=== PATIENT | female | born 1930 | race Caucasian/White ===

== ENCOUNTER → 2016-09-06 | Outpatient (CLI) | payer OTHER ==
[~2016-09-06] MED LIST: CARDIZEM CD240 MG PO; GABAPENTIN 100100 MG PO; GLUCOPHAGE XR500 MG PO; IBUPROFEN 200200 M1 PO; MIRALAX17 G1 PO
== END ==
LOC: ULTRA 09:17
DX: I73.9 Peripheral vascular disease, unspecified (principal); M79.604 Pain in right leg

== ENCOUNTER 2016-12-13 05:18 | Inpatient (IN) | payer OTHER ==
[2016-12-02 10:43] LABS: HEMATOCRIT 36.3 % (37.0-47.0); HEMOGLOBIN 11.4 gm/dL (12.0-15.0); MCH 25.6 pg (26.0-34.0); MCHC 31.3 g/dL (28.0-37.0); MCV 81.7 fL (80.0-100.0); RBC 4.45 mil/uL (4.20-5.00); RDW 18.2 % (10.5-14.5); WBC 7.9 thou/uL (4.0-11.0)
[2016-12-02 10:53] LABS: ALBUMIN 3.6 g/dL (3.4-5.0); CALCIUM 9.3 mg/dL (8.5-10.1); CREATININE 0.9 mg/dL (0.6-1.0); POTASSIUM 4.1 mmol/L (3.5-5.1); PROTIME 10.3 Seconds (9.3-11.4)
[2016-12-02 11:13] LABS: URINE BILIRUBIN NEGATIVE (Negative); URINE BLOOD NEGATIVE (Negative); URINE COLOR YELLOW; URINE GLUCOSE-RANDOM* NEGATIVE (Negative); URINE KETONES NEGATIVE (Negative); URINE LEUKOCYTES-REFLEX 3+ (Negative); URINE PROTEIN (DIPSTICK) NEGATIVE (Negative); URINE UROBILINOGEN 0.2 E.U./dl (0.2-1.0)
[2016-12-02 11:32] LABS: CASTS None Seen /LPF (None Seen); SQUAMOUS >10 Many /LPF (0-3)
[2016-12-02 11:33] LABS: CRYSTALS None Seen /LPF (None Seen); URINE RBC 0-2 Rare /HPF (0-2); URINE WBC-REFLEX >25 Many /HPF (0-5)
[2016-12-03 17:25] LABS: GLYCOHEMOGLOBIN (HGB A1C) 5.6 % (4.8-5.6)
[2016-12-05 14:21] LABS: URINE BILIRUBIN NEGATIVE (Negative); URINE BLOOD NEGATIVE (Negative); URINE COLOR YELLOW; URINE GLUCOSE-RANDOM* NEGATIVE (Negative); URINE KETONES NEGATIVE (Negative); URINE LEUKOCYTES-REFLEX NEGATIVE (Negative); URINE PROTEIN (DIPSTICK) NEGATIVE (Negative); URINE SPECIFIC GRAVITY 1.015 (1.003-1.035); URINE UROBILINOGEN 0.2 E.U./dl (0.2-1.0)
[~2016-12-13] VITALS: Ht 149.9 cm; Wt 77.1 kg
[2016-12-13] VITALS (8 sets, daily range): BP systolic 110–159; BP diastolic 42–73
--- NOTE | ~2016-12-13 | O ---
[facility] [place] [address] OPERATIVE REPORT Name: ISABELLA BROWNING Room #: 537-P [facility] IN M.R.#: [id number] Admission: 12/13/16 Attend Phys: Chas Stephens MD Discharge: 12/17/16 Date of : 34 Report #: [id number] THIS REPORT FOR: //name// CC: Alexis Antonio MD [facility] Alonso Stephens DATE OF OPERATION: 12/13/2016. PREOPERATIVE DIAGNOSES: Left knee degenerative joint disease, severe. Obesity, BMI 35.94 POSTOPERATIVE DIAGNOSES: Left knee degenerative joint disease, severe. Obesity, BMI 35.94 PROCEDURE: Left total knee arthroplasty. SURGEON: Dr. Chas Stephens. SENIOR APPLICATIONS ANALYST: MARJORIE Arredondo. ANESTHETIC: General. INDICATIONS: See hospital history and physical. IMPLANTS UTILIZED: We used a DePuy PFC knee system. We used a press-fit femoral component size 3, a cruciate retaining. We used a size 3 tibial tray with a 10 mm insert and a 38 mm oval dome patella. DESCRIPTION OF PROCEDURE: After adequate general anesthesia had been obtained, the patient's left lower extremity was prepped and draped in the usual meticulous sterile fashion. Limb was exsanguinated with gravity, tourniquet inflated to 350 torr. An anterior midline incision was made, subQ divided sharply. Hemostasis obtained with electrocautery. Medial parapatellar incision was made. Infrapatellar fat pad excised. Medial release performed. The drill was used to drill the distal femur. This hole was enlarged, irrigated, suctioned, and the intramedullary guide placed the full length of the femur. The distal femoral cutting guide was pinned the appropriate height and the distal femoral cut was made. Measuring device determined the size 3 was appropriate size for this patient. We marked the distal femur, impacted the cutting guide into position and the anterior, posterior and chamfer cuts were made. Rongeur was used to remove additional osteophytes. At this time, the ACL was transected, tibia translated anteriorly and menisci were excised. Drill was used to drill central portion of the tibia. This hole was enlarged, irrigated, suctioned, and the intramedullary guide placed the full length of tibia. Proximal tibial cutting guide placed at appropriate height. Proximal tibia cut [address] [address] OPERATIVE REPORT Name: ISABELLA BROWNING Room #: 537-P [facility] IN M.R.#: [id number] Admission: 12/13/16 Attend Phys: Chas Stephens MD Discharge: 12/17/16 Date of : 34 Report #: [id number] was made, 3 tray gave us the best coverage on the tibia. We then meticulous removed osteophytes posteriorly. We then placed trial components in position with a 10 spacer, she had the best flexion and extension gap. Patella tracked normally. At this time, patella was measured, cutting guide clamped into place, patellar cut was made. 38 template gave us the best coverage. Pedicles were drilled, trial component put in position, it tracked normally. At this time, the trial components were removed. Tibial keel cuts were made. The knee was irrigated with both pulse lavage and antibiotic irrigation. Bone plugs were placed proximal tibia and distal femur. Next vacuum mixed the cement and when it reached the appropriate consistency, the knee was thoroughly dried, the tibial tray was cemented in place. Excess cement was removed. The polyethylene was impacted in place and the femur impacted in place and the knee was taken out to 30 degrees of flexion, uniform compression placed across components. Patellar button was then cemented into place and again excess cement was removed. Irrigation was placed in the wound and allowed to rest in the wound until the cement fully cured. When it had done so, the knee was irrigated, dried thoroughly, and inspected. Drains were placed superolaterally both deep and superficial. The retinacular layer closed with combination of interrupted [id number] #1 Vicryl as well as running #2 Tevdek. SubQ closed with 2-0 Monocryl in multiple layers due to the patient's size, which took extra time. Skin closed with tomer. Sterile compressive dressing applied. Tourniquet then deflated. <ELECTRONICALLY SIGNED> By: Chas Stephens MD 12/20/16 0723 [id number] Chas Stephens MD /nt
[~2016-12-13 05:18] MED LIST changes: +ALEVE220 MG PO; +ASPIR 8181 MG PO; +DIAPLEX PO; +TOPROL XL25 MG PO; +VITAL REDS PO; +VITAMIN B-12100 MC1 PO; +VITAMIN D1000 UNIT PO
[2016-12-14] VITALS (7 sets, daily range): BP systolic 101–148; BP diastolic 43–78
[2016-12-14 06:29] LABS: HEMATOCRIT 30.4 % (37.0-47.0); HEMOGLOBIN 9.8 gm/dL (12.0-15.0); MCH 26.3 pg (26.0-34.0); MCHC 32.2 g/dL (28.0-37.0); MCV 81.5 fL (80.0-100.0); RBC 3.73 mil/uL (4.20-5.00); RDW 17.8 % (10.5-14.5); WBC 11.9 thou/uL (4.0-11.0)
[2016-12-14 10:25] LABS: CALCIUM 8.6 mg/dL (8.5-10.1); CREATININE 0.9 mg/dL (0.6-1.0); POTASSIUM 4.1 mmol/L (3.5-5.1)
[2016-12-15 04:10] VITALS: BP 146/46
[2016-12-15 06:33] LABS: HEMATOCRIT 28.8 % (37.0-47.0); HEMOGLOBIN 9.4 gm/dL (12.0-15.0); MCH 26.2 pg (26.0-34.0); MCHC 32.6 g/dL (28.0-37.0); MCV 80.5 fL (80.0-100.0); RBC 3.58 mil/uL (4.20-5.00); RDW 17.9 % (10.5-14.5); WBC 13.5 thou/uL (4.0-11.0)
[2016-12-15] MEDS ORDERED: XARELTO10 MG PO (07:23)
[2016-12-15] MEDS ORDERED: HYDROCODONE-APA1 TA1 PO (07:23)
[2016-12-15 08:42] VITALS: BP 140/47
[2016-12-15 15:50] VITALS: BP 127/42
[2016-12-15 22:08] VITALS: BP 138/51
[2016-12-16 04:49] VITALS: BP 114/49
[2016-12-16 06:30] LABS: HEMATOCRIT 26.1 % (37.0-47.0); HEMOGLOBIN 8.5 gm/dL (12.0-15.0); MCH 26.3 pg (26.0-34.0); MCHC 32.5 g/dL (28.0-37.0); RBC 3.22 mil/uL (4.20-5.00); WBC 8.7 thou/uL (4.0-11.0)
[2016-12-16 07:14] VITALS: BP 136/70
[2016-12-16 07:56] VITALS: BP 128/44
[2016-12-16 15:37] VITALS: BP 132/48
[2016-12-16 19:22] VITALS: BP 142/42
[2016-12-17 03:35] VITALS: BP 131/48
[2016-12-17 07:24] LABS: HEMATOCRIT 28.5 % (37.0-47.0); HEMOGLOBIN 9.3 gm/dL (12.0-15.0)
[2016-12-17 08:00] VITALS: BP 150/60
[2016-12-17 13:04] VITALS: BP 126/43
== END 2016-12-17 14:30 | DRG 470 ==
LOC: 5S 05:18 → TBA 05:18 → PRE 06:03 → 5S 10:24 → PRE 12:01 → 5S 12-17 14:30
PROVIDERS: Internal Medicine; Orthopaedic Surgery
PROC: 0SRD0J9 Replacement of Left Knee Joint with Synthetic Substitute, Cemented, Open Approach (ICD-10-PCS; principal; 2016-12-13)
DX: M17.12 Unilateral primary osteoarthritis, left knee (principal); E66.9 Obesity, unspecified; I10 Essential (primary) hypertension; Z88.2 Allergy status to sulfonamides; Z68.35 Body mass index [BMI] 35.0-35.9, adult
CPT/HCPCS: 10785; 50010; 50101; 50415; 50612; 50954; 51130; 51225; 51320; 51412; 51771; 52001; 52282; 53000; 53078; 53364; 56525; 56527; 62110; 62900; 70005

== ENCOUNTER → 2019-11-26 | Outpatient (CLI) | payer OTHER ==
[~2019-11-26] MED LIST changes: +HYDROCODONE-APA1 TA1 PO; +XARELTO10 MG PO
== END ==
LOC: SJCVC 10:35
PROVIDERS: ATTEND Internal Medicine Cardiovascular Disease
DX: I47.1 Supraventricular tachycardia (principal); E78.5 Hyperlipidemia, unspecified; I35.0 Nonrheumatic aortic (valve) stenosis; I38 Endocarditis, valve unspecified; I48.0 Paroxysmal atrial fibrillation; M19.90 Unspecified osteoarthritis, unspecified site; E78.00 Pure hypercholesterolemia, unspecified; Z79.82 Long term (current) use of aspirin; Z90.710 Acquired absence of both cervix and uterus; Z96.652 Presence of left artificial knee joint

== ENCOUNTER → 2020-08-26 | Outpatient (CLI) | payer OTHER | LOC: SJCVCIMAG 09:33 | PROVIDERS: ATTEND Internal Medicine Cardiovascular Disease | DX: I08.0 Rheumatic disorders of both mitral and aortic valves (principal); I47.1 Supraventricular tachycardia; I10 Essential (primary) hypertension; E78.5 Hyperlipidemia, unspecified; M17.0 Bilateral primary osteoarthritis of knee; C54.1 Malignant neoplasm of endometrium; K21.9 Gastro-esophageal reflux disease without esophagitis; E11.9 Type 2 diabetes mellitus without complications; J18.9 Pneumonia, unspecified organism; Z88.2 Allergy status to sulfonamides; Z79.82 Long term (current) use of aspirin; Z79.899 Other long term (current) drug therapy ==